=== PATIENT | male | born 1955 | race Two or more races ===

== ENCOUNTER 2016-04-04 07:23 | Day surgery (SDC) | payer OTHER ==
[2016-03-31 13:38] VITALS: BMI 26.9
--- NOTE | 2016-04-04 06:25 | HP ---
History & Physical Update - History History: No Change - Physical Physical: No Change - Assessment Assessment: No Change - Plan Plan: No Change
[~2016-04-04 07:23] MED LIST: CHONDROITIN SU A/HYALUR SOD 1 KIT IO ONE; CHONDROITIN/NA HYALURONATE 0.5 ML DISP.SYRIN IO ONE; LIDOCAINE HCL 1% PRESERVATIVE FREE - 30ML VIAL IO ONE; TETRACAINE 0.5% HCL 0.6ML DROPPER.BOTTLE TP ONE; TOBRA 0.3%/DEXAMETH 0.1% OPHTHALMIC SUSP 2.5 ML BTL TP ONE
[2016-04-04] MEDS ORDERED: TROPICAMIDE 1% OPHTH SOLN 15 ML BOTTLE ONE (07:35)
[2016-04-04] MEDS ORDERED: CYCLOPENTOLATE HCL 1% OPHTH SOLN 2 ML BOTTLE ONE (07:35)
[2016-04-04] MEDS ORDERED: MOXIFLOXACIN HCL 0.5% OPHTHALMIC 3 ML BOTTLE ONE (07:35)
[2016-04-04] MEDS ORDERED: PHENYLEPHRINE 2.5% OPHTH SOLN 15 ML BOTTLE ONE (07:35)
[2016-04-04 07:47] VITALS: TEMP 98.1
[2016-04-04] MEDS: CYCLOPENTOLATE HCL 1% OPHTH SOLN 2 ML BOTTLE OP SCH ×3 (07:50→08:30)
[2016-04-04] MEDS: TROPICAMIDE 1% OPHTH SOLN 15 ML BOTTLE OP SCH ×3 (07:50→08:30)
[2016-04-04] MEDS: MOXIFLOXACIN HCL 0.5% OPHTHALMIC 3 ML BOTTLE OP SCH ×3 (07:50→08:30)
[2016-04-04] MEDS: PHENYLEPHRINE 2.5% OPHTH SOLN 15 ML BOTTLE OP SCH ×3 (07:50→08:30)
[2016-04-04] MEDS ORDERED: TOBRA 0.3%/DEXAMETH 0.1% OPHTHALMIC SUSP 2.5 ML BTL ONE (09:11)
[2016-04-04] MEDS ORDERED: EPINEPHrine/PF 1 MG/1 ML (1:1,000) AMPULE ONE (09:11)
[2016-04-04] MEDS ORDERED: TETRACAINE 0.5% OPHTH SOLN 2 ML BOTTLE ONE (09:12)
[2016-04-04] MEDS ORDERED: LIDOCAINE HCL/PF 1% SDV 5ML VIAL ONE (09:12)
[2016-04-04] MEDS ORDERED: TETRACAINE 0.5% HCL 0.6ML DROPPER.BOTTLE TP ONE (09:19)
[2016-04-04] MEDS ORDERED: MIDAZOLAM HCL 2 MG/2 ML SINGLE DOSE VIAL ONE (09:20)
[2016-04-04] MEDS ORDERED: CHONDROITIN/NA HYALURONATE 0.5 ML DISP.SYRIN IO ONE (09:32)
[2016-04-04] MEDS ORDERED: LIDOCAINE HCL 1% PRESERVATIVE FREE - 30ML VIAL IO ONE (09:32)
[2016-04-04] MEDS ORDERED: CHONDROITIN SU A/HYALUR SOD 1 KIT IO ONE (09:45)
[2016-04-04] MEDS ORDERED: TOBRA 0.3%/DEXAMETH 0.1% OPHTHALMIC SUSP 2.5 ML BTL TP ONE (09:49)
[2016-04-04 14:31] VITALS: BP 154/70; PULSE 93
--- NOTE | 2016-04-04 14:36 | OP ---
DATE OF OPERATION: 04/04/2016 SURGEON: Harris Joyce MD PREOPERATIVE DIAGNOSIS: Cataract, right eye. OPERATION: Phacoemulsification and intraocular lens implantation, right eye. POSTOPERATIVE DIAGNOSIS: Cataract, right eye. ANESTHESIA: Topical. COMPLICATIONS: None. BLOOD LOSS: None. SPECIMEN: None. BRIEF HISTORY: The patient is a 61-year-old man with a past medical history of diabetes, who presented with decreased vision in the right eye down to counting fingers due to a 2+ nuclear sclerotic lens with a diffuse posterior subcapsular cataract. After the risks, benefits and alternatives to cataract surgery were discussed with the patient, he consented to surgery for the right eye. The patient was brought to the operating room and prepped and draped in the usual sterile fashion and an eyelid speculum was inserted in the right eye. A paracentesis was made and the anterior chamber was inflated with nonpreserved lidocaine. This was followed by injection of Viscoat. A groove was made in the temporal clear cornea, which was tunneled forward with a crescent blade. The anterior chamber was entered with a 2.75 keratome. The cystotome was used to make an incision in the center of the capsule and a continuous curvilinear capsulorrhexis was created. The lens was hydrodissected and hydrodelineated until it was found to rotate freely within the capsular bag. Phacoemulsification was then used to remove the lens in its entirety. Irrigation and aspiration was used to remove residual cortical material. The anterior chamber and capsular bag were reinflated with Provisc and a 21.5- diopter SN60WF AcrySof intraocular lens was injected into the capsular bag using the [place] injector. The lens was dialed into place using the [employer] hook. Irrigation and aspiration was used to remove residual viscoelastic. The wound was stromally hydrated until it was found to be watertight and the eye was at an appropriate pressure. The eyelid speculum was removed from the eye and TobraDex drops and a clear shield were placed over the right eye. The patient was transferred to the recovery room in stable condition and will follow up tomorrow. Jazmín [id number] MTDD
== END 2016-04-04 10:50 | disposition home or self-care (01) ==
LOC: JASU-SURG 07:23
PROVIDERS: ATTEND Ophthalmology
PROC: 08RJ3JZ Replacement of Right Lens with Synthetic Substitute, Percutaneous Approach (ICD-10-PCS; principal; 2016-04-04 09:00)
DX: H25.11 Age-related nuclear cataract, right eye (principal)

== ENCOUNTER 2016-06-06 08:56 | Day surgery (SDC) | payer OTHER ==
[2016-05-26 14:40] VITALS: BMI 28.1
--- NOTE | 2016-06-06 06:20 | HP ---
History & Physical Update - History History: No Change - Physical Physical: No Change - Assessment Assessment: No Change - Plan Plan: No Change
[~2016-06-06 08:56] MED LIST changes: -CHONDROITIN SU A/HYALUR SOD 1 KIT IO ONE; -CHONDROITIN/NA HYALURONATE 0.5 ML DISP.SYRIN IO ONE; +CYCLOPENTOLATE HCL 1% OPHTH SOLN 2 ML BOTTLE OP SCH; -LIDOCAINE HCL 1% PRESERVATIVE FREE - 30ML VIAL IO ONE; +MOXIFLOXACIN HCL 0.5% OPHTHALMIC 3 ML BOTTLE OP SCH; +PHENYLEPHRINE 2.5% OPHTH SOLN 15 ML BOTTLE OP SCH; -TETRACAINE 0.5% HCL 0.6ML DROPPER.BOTTLE TP ONE; -TOBRA 0.3%/DEXAMETH 0.1% OPHTHALMIC SUSP 2.5 ML BTL TP ONE; +TROPICAMIDE 1% OPHTH SOLN 15 ML BOTTLE OP SCH
[2016-06-06] MEDS ORDERED: MOXIFLOXACIN HCL 0.5% OPHTHALMIC 3 ML BOTTLE ONE (09:05)
[2016-06-06] MEDS ORDERED: PHENYLEPHRINE 2.5% OPHTH SOLN 15 ML BOTTLE ONE (09:05)
[2016-06-06] MEDS ORDERED: CYCLOPENTOLATE HCL 1% OPHTH SOLN 2 ML BOTTLE ONE (09:05)
[2016-06-06] MEDS ORDERED: TROPICAMIDE 1% OPHTH SOLN 15 ML BOTTLE ONE (09:05)
--- NOTE | 2016-06-06 11:52 | EKG ---
Test Reason : Blood Pressure : / mmHG Vent. Rate : 082 BPM Atrial Rate : 082 BPM P-R Int : 154 ms QRS Dur : 090 ms QT Int : 360 ms P-R-T Axes : 081 008 047 degrees QTc Int : 420 ms NORMAL SINUS RHYTHM POSSIBLE LEFT ATRIAL ENLARGEMENT RSR' OR QR PATTERN IN V1 SUGGESTS RIGHT VENTRICULAR CONDUCTION DELAY BORDERLINE ECG WHEN COMPARED WITH ECG OF 04-AUG-2013 09:37, NO SIGNIFICANT CHANGE WAS FOUND Confirmed by SRIKANTH LOBO, GINNA ([id number]) on 06/06/2016 11:51:59 AM Referred By: Harris Joyce Confirmed By:GINNA DUKE MD
== END 2016-06-06 09:56 | disposition home or self-care (01) ==
LOC: JASU-SURG 08:56
PROVIDERS: ATTEND Ophthalmology
PROC: [UNRECOGNIZED PROCEDURE] (principal; 2016-06-06)
DX: Z53.8 Procedure and treatment not carried out for other reasons (principal)
CPT/HCPCS: 93005; 93010

== ENCOUNTER 2016-06-13 06:49 | Day surgery (SDC) | payer OTHER ==
[2016-06-12 11:26] VITALS: BMI 28.1
--- NOTE | 2016-06-13 06:10 | HP ---
History & Physical Update - History History: No Change - Physical Physical: No Change - Assessment Assessment: No Change - Plan Plan: No Change
[~2016-06-13 06:49] MED LIST changes: +BUPIVACAINE HCL/PF 0.75% 10 ML VIAL RB ONE; +CHONDROITIN SU A/HYALUR SOD 1 KIT IO ONE; +EPINEPHrine/PF 1 MG/1 ML (1:1,000) AMPULE SQ ONE; +LIDOCAINE HCL 1% PRESERVATIVE FREE - 30ML VIAL IO ONE; +LIDOCAINE HCL/PF 2% SDV 5ML VIAL INF ONE; +POVIDONE-IODINE 5% OPHTHALMIC PREP 30 ML SOLUTION OS ONE; +TETRACAINE 0.5% OPHTH SOLN 2 ML BOTTLE OS ONE; +TOBRAMYCIN/DEXAMETHASONE OPHTH. OINTMENT 1 TUBE TP ONE
[2016-06-13] MEDS ORDERED: CYCLOPENTOLATE HCL 1% OPHTH SOLN 2 ML BOTTLE ONE (06:52)
[2016-06-13] MEDS ORDERED: TROPICAMIDE 1% OPHTH SOLN 15 ML BOTTLE ONE (06:52)
[2016-06-13] MEDS ORDERED: MOXIFLOXACIN HCL 0.5% OPHTHALMIC 3 ML BOTTLE ONE (06:52)
[2016-06-13] MEDS ORDERED: PHENYLEPHRINE 2.5% OPHTH SOLN 15 ML BOTTLE ONE (06:52)
[2016-06-13] MEDS ORDERED: PHENYLEPHRINE 2.5% OPHTH SOLN 15 ML BOTTLE OS ONE ×2 (07:15→07:20)
[2016-06-13] MEDS ORDERED: TROPICAMIDE 1% OPHTH SOLN 15 ML BOTTLE OS ONE ×2 (07:15→07:20)
[2016-06-13] MEDS ORDERED: CYCLOPENTOLATE HCL 1% OPHTH SOLN 2 ML BOTTLE OS ONE ×2 (07:15→07:20)
[2016-06-13] MEDS ORDERED: MOXIFLOXACIN HCL 0.5% OPHTHALMIC 3 ML BOTTLE OS ONE ×2 (07:15→07:20)
[2016-06-13 07:17] VITALS: TEMP 97.8
[2016-06-13] MEDS ORDERED: POVIDONE-IODINE 5% OPHTHALMIC PREP 30 ML SOLUTION ONE (07:17)
[2016-06-13] MEDS ORDERED: TOBRAMYCIN/DEXAMETHASONE OPHTH. OINTMENT 1 TUBE ONE (07:17)
[2016-06-13] MEDS ORDERED: BSS (NA/CA/MG/K) BALANCED SALT SOLUTION OPHTH SOLN 15 ML BOTTLE ONE (07:17)
[2016-06-13] MEDS ORDERED: PHENYLEPHRINE HCL 10 MG/1 ML SINGLE DOSE VIAL ONE (07:52)
[2016-06-13] MEDS ORDERED: PROPOFOL 20 ML ONE (07:53)
[2016-06-13] MEDS ORDERED: SUCCINYLCHOLINE CHLORIDE 200 MG/10 ML VIAL ONE (07:53)
[2016-06-13] MEDS ORDERED: MIDAZOLAM HCL 2 MG/2 ML SINGLE DOSE VIAL ONE (07:53)
[2016-06-13] MEDS ORDERED: TETRACAINE 0.5% OPHTH SOLN 2 ML BOTTLE OS ONE (08:01)
[2016-06-13] MEDS ORDERED: LIDOCAINE HCL/PF 2% SDV 5ML VIAL INF ONE (08:03)
[2016-06-13] MEDS ORDERED: BUPIVACAINE HCL/PF 0.75% 10 ML VIAL RB ONE (08:03)
[2016-06-13] MEDS ORDERED: POVIDONE-IODINE 5% OPHTHALMIC PREP 30 ML SOLUTION OS ONE (08:05)
[2016-06-13] MEDS ORDERED: LIDOCAINE HCL 1% PRESERVATIVE FREE - 30ML VIAL IO ONE (08:14)
[2016-06-13] MEDS ORDERED: CHONDROITIN SU A/HYALUR SOD 1 KIT IO ONE (08:14)
[2016-06-13] MEDS ORDERED: BSS (NA/CA/MG/K) BALANCED SALT SOLUTION OPHTH SOLN 15 ML BOTTLE OS ONE (08:14)
[2016-06-13] MEDS ORDERED: EPINEPHrine/PF 1 MG/1 ML (1:1,000) AMPULE SQ ONE (08:19)
[2016-06-13] MEDS ORDERED: TOBRAMYCIN/DEXAMETHASONE OPHTH. OINTMENT 1 TUBE TP ONE (08:33)
[2016-06-13] MEDS ORDERED: ACETAMINOPHEN 325 MG TABLET (FP) ONE (09:09)
[2016-06-13] MEDS ORDERED: ACETAMINOPHEN 325 MG TABLET (FP) PO ONE (09:10)
[2016-06-13 09:55] VITALS: BP 127/77; PULSE 82
--- NOTE | 2016-06-13 21:52 | OP ---
DATE OF OPERATION: 06/13/2016 SURGEON: Harris Joyce MD PREOPERATIVE DIAGNOSIS: Cataract, left eye. OPERATION: Phacoemulsification, intraocular lens implantation, left eye. POSTOPERATIVE DIAGNOSIS: Cataract, left eye. ANESTHESIA: Local with intravenous sedation. COMPLICATIONS: None. BLOOD LOSS: None. SPECIMEN: None. BRIEF HISTORY: The patient is a 61-year-old man with a past medical history of diabetes, presents with decreased vision in the left eye down to 20/50 due to a 2+ nuclear sclerotic lens and posterior subcapsular cataract. After the risks, benefits and alternatives to cataract surgery were discussed with the patient, he consented to surgery for the left eye. DESCRIPTION OF PROCEDURE: The patient was brought to the operating room and administered retrobulbar block after receiving intravenous sedation. He was then prepped and draped in the usual sterile fashion and an eyelid speculum was inserted in the left eye. A paracentesis was made and the anterior chamber was inflated with nonpreserved lidocaine. This was followed by injection of Viscoat. A groove was made in the superotemporal clear cornea, which was tunneled forward with a crescent blade. The anterior chamber was entered with a 2.75 keratome. The cystotome was used to make an incision in the center of the capsule and a continuous curvilinear capsulorrhexis was created. The lens was hydrodissected until it was found to rotate freely within the capsular bag. Phacoemulsification was then used to remove the lens in its entirety. Irrigation and aspiration was used to remove residual cortical material. The anterior chamber and capsular bag were reinflated with Provisc and a 21.0-diopter SN60WF AcrySof intraocular lens was injected into the capsular bag using the [place] injector. The lens was dialed into place using [employer] hook. Irrigation and aspiration was used to remove residual viscoelastic. The wound was stromally hydrated until it was found to be watertight and the eye was in an appropriate pressure. The eyelid speculum was removed from the eye and TobraDex ointment and a patch and shield were placed over the left eye. The patient was transferred to the recovery room in stable condition and will follow up tomorrow. Jazmín GALVIN/[id number] MTD
== END 2016-06-13 09:35 | disposition home or self-care (01) ==
LOC: JASU-SURG 06:49
PROVIDERS: ATTEND Ophthalmology
PROC: 08RK3JZ Replacement of Left Lens with Synthetic Substitute, Percutaneous Approach (ICD-10-PCS; principal; 2016-06-13 08:00)
DX: H26.8 Other specified cataract (principal)